=== PATIENT | female | born 1980 | race Caucasian/White ===

== ENCOUNTER 2018-09-26 07:51 | Inpatient (IN) | payer OTHER ==
[2018-09-26] MEDS ORDERED: LACTATED RINGER'S 1,000 ML IV (08:14)
[2018-09-26] MEDS ORDERED: OXYTOCIN 30 UNITS/LR 500 ML IV ×2 (08:30)
[2018-09-26] MEDS ORDERED: LIDOCAINE 1% (MPF) 30 ML INJ INJ (08:30)
[2018-09-26] MEDS ORDERED: CARBOPROST 250 MCG INJ IM (08:30)
[2018-09-26] MEDS ORDERED: MISOPROSTOL 200 MCG TAB PR (08:30)
[2018-09-26] MEDS ORDERED: METHYLERGONOVINE 0.2 MG INJ IM (08:30)
[2018-09-26 08:59] LABS: ADD MAN DIFF? NO
[2018-09-26 09:02] LABS: ABNORMAL IP MESSAGE 1; BASOPHIL # 0.1 10^3/ul (0.0-0.1); BASOPHILS % 0.4 % (0.0-2.0); EOSINOPHILS # 0.1 10^3/ul (0.0-0.5); EOSINOPHILS % 0.9 % (0.0-7.0); HEMATOCRIT 35.4 % (37.0-47.0); HEMOGLOBIN 12.2 g/dl (12.0-16.0); LYMPHOCYTES # 2.9 10^3/ul (0.8-2.9); LYMPHOCYTES % 23.8 % (15.0-51.0); MEAN CORPUSCULAR HEMOGLOBIN 30.3 pg (29.0-33.0); MEAN CORPUSCULAR HGB CONC 34.5 g/dl (32.0-37.0); MEAN CORPUSCULAR VOLUME 87.8 fl (82.0-101.0); MEAN PLATELET VOLUME 13.3 fl (7.4-10.4); MONOCYTE # 0.7 10^3/ul (0.3-0.9); MONOCYTES % 5.3 % (0.0-11.0); NEUTROPHIL # 8.5 10^3/ul (1.6-7.5); NEUTROPHILS % 68.9 % (39.0-77.0); PLATELET COUNT 182 10^3/UL (140-415); RED BLOOD COUNT 4.03 10^6/ul (4.20-5.40); RED CELL DISTRIBUTION WIDTH 13.2 % (11.5-14.5)
[2018-09-26 09:02] LABS: WHITE BLOOD COUNT 12.4 10^3/ul (4.8-10.8)
[2018-09-26 09:22] LABS: INR 0.89; PARTIAL THROMBOPLASTIN TIME 27.5 Sec (23.0-35.0); PROTIME 12.2 Sec (11.9-14.9)
[2018-09-26 09:24] LABS: POSITIVE DIFF @See below
[2018-09-26] MEDS: MISOPROSTOL 50 MCG CAPSULE PO ×4 (09:44→22:04)
[2018-09-26] MEDS: LACTATED RINGER'S 1,000 ML IV ×3 (09:44→23:09)
[2018-09-26 09:53] LABS: HEPATITIS B SURFACE ANTIGEN NEGATIVE (NEGATIVE)
[2018-09-26 15:23] LABS: RAPID PLASMA REAGIN NONREACTIVE (NR)
[2018-09-26] MEDS: ACYCLOVIR 400 MG TAB PO ×2 (21:00→22:04)
[2018-09-26] MEDS: BUTORPHANOL 2 MG INJ IV (23:52)
[2018-09-27] MEDS: MISOPROSTOL 50 MCG CAPSULE PO ×3 (01:59→09:00)
[2018-09-27] MEDS: CALCIUM CARBONATE 500 MG CHEW TAB PO ×2 (02:38→12:30)
[2018-09-27] MEDS: LACTATED RINGER'S 1,000 ML IV ×3 (04:40→11:06)
[2018-09-27] MEDS ORDERED: FENTAnyl 2MCG/ML-ROPIV 0.2% 100 ML (05:14)
[2018-09-27] MEDS ORDERED: NALOXONE (0.4 MG/ML) INJ IV (05:30)
[2018-09-27] MEDS: ACYCLOVIR 400 MG TAB PO (09:28)
[2018-09-27] MEDS: OXYTOCIN 30 UNITS/LR 500 ML IV ×3 (12:38→21:58)
[2018-09-27] MEDS: FENTAnyl 2MCG/ML-ROPIV 0.2% 100 ML BAG EPI (13:33)
[2018-09-27] MEDS ORDERED: SODIUM CHLORIDE 0.9% 1L IRRIG IRR (14:00)
[2018-09-27] MEDS: DEXTROSE 5%-LR 1,000 ML IV (14:32)
[2018-09-27] MEDS ORDERED: ONDANSETRON 4 MG INJ (17:28)
[2018-09-27] MEDS: ONDANSETRON 4 MG INJ IV (17:30)
[2018-09-27] MEDS: IBUPROFEN 600 MG TAB PO (18:43)
[2018-09-27] MEDS ORDERED: METHYLERGONOVINE 0.2 MG INJ IM (22:00)
[2018-09-27] MEDS ORDERED: LANOLIN HPA 1 PKT TOP (22:00)
[2018-09-27] MEDS ORDERED: OXYCODONE/ASPIRIN (4.88/325) TAB PO (22:00)
[2018-09-27] MEDS ORDERED: CARBOPROST 250 MCG INJ IM (22:00)
[2018-09-27] MEDS ORDERED: SENNA/DOCUSATE NA (8.6MG/50MG) TAB PO (22:00)
[2018-09-27] MEDS ORDERED: ZOLPIDEM 5 MG TAB PO (22:00)
[2018-09-27] MEDS ORDERED: OXYTOCIN 30 UNITS/LR 500 ML IV (22:00)
[2018-09-27] MEDS ORDERED: NACL 0.9% 3 ML SYG IV (22:00)
[2018-09-27] MEDS ORDERED: MISOPROSTOL 200 MCG TAB PR (22:00)
[2018-09-28] MEDS: BENZOCAINE 20% 56 ML SPRAY TOP (00:13)
[2018-09-28] MEDS: WITCH HAZEL/GLYCERIN PAD PR (00:14)
[2018-09-28] MEDS: ACETAMINOPHEN 325 MG TAB PO (00:14)
[2018-09-28] MEDS: IBUPROFEN 600 MG TAB PO ×4 (06:51→17:51)
[2018-09-28 07:08] LABS: ADD MAN DIFF? NO
[2018-09-28 07:10] LABS: BASOPHIL # 0.1 10^3/ul (0.0-0.1); BASOPHILS % 0.3 % (0.0-2.0); EOSINOPHILS # 0.1 10^3/ul (0.0-0.5); EOSINOPHILS % 0.6 % (0.0-7.0); HEMOGLOBIN 11.5 g/dl (12.0-16.0); LYMPHOCYTES % 14.6 % (15.0-51.0); MEAN CORPUSCULAR HEMOGLOBIN 30.2 pg (29.0-33.0); MEAN CORPUSCULAR HGB CONC 32.9 g/dl (32.0-37.0); MEAN CORPUSCULAR VOLUME 91.9 fl (82.0-101.0); MEAN PLATELET VOLUME 12.8 fl (7.4-10.4); MONOCYTE # 1.3 10^3/ul (0.3-0.9); MONOCYTES % 6.2 % (0.0-11.0); NEUTROPHIL # 16.1 10^3/ul (1.6-7.5); NEUTROPHILS % 77.4 % (39.0-77.0); PLATELET COUNT 168 10^3/UL (140-415); RED BLOOD COUNT 3.81 10^6/ul (4.20-5.40); RED CELL DISTRIBUTION WIDTH 13.8 % (11.5-14.5)
[2018-09-28 07:10] LABS: WHITE BLOOD COUNT 20.8 10^3/ul (4.8-10.8)
[2018-09-28] MEDS: SENNA/DOCUSATE NA (8.6MG/50MG) TAB PO ×2 (09:34→21:02)
[2018-09-29] MEDS: IBUPROFEN 600 MG TAB PO ×3 (00:01→11:42)
[2018-09-29] MEDS: SENNA/DOCUSATE NA (8.6MG/50MG) TAB PO (08:34)
[2018-09-29] MEDS: MEASLES,MUMPS,RUBELLA VACCINE INJ SC* (11:42)
== END 2018-09-29 15:34 | disposition home or self-care (01) | DRG 807 ==
LOC: PP1 09-27 20:04 → L-D 07:51
PROVIDERS: Obstetrics & Gynecology
PROC: 3E033VJ Introduction of Other Hormone into Peripheral Vein, Percutaneous Approach (ICD-10-PCS; 2018-09-27)
PROC: 10E0XZZ Delivery of Products of Conception, External Approach (ICD-10-PCS; principal; 2018-09-28)
PROC: 0KQM0ZZ Repair Perineum Muscle, Open Approach (ICD-10-PCS; 2018-09-28)
DX: O36.8130 Decreased fetal movements, third trimester, not applicable or unspecified (principal); O70.1 Second degree perineal laceration during delivery; O69.1XX0 Labor and delivery complicated by cord around neck, with compression, not applicable or unspecified; Z3A.39 39 weeks gestation of pregnancy; Z37.0 Single live birth
CPT/HCPCS: 62322; 76815; 85025; 85610; 85730; 86592; 86850; 86900; 86901; 87340; 99464